=== PATIENT | male | born 1965 | race Caucasian/White ===

== ENCOUNTER → 2020-12-11 | Outpatient (CLI) | payer OTHER ==
[~2020-12-11] MED LIST: FENTANYL CITRATE/PF 100MCG/2 ML INJ ONE; MIDAZOLAM HCL 2 MG/2 ML VIAL ONE
[2020-12-11 08:32] LABS: HEMATOCRIT 36.2 % (38.2-49.6); HEMOGLOBIN 12.1 g/dL (14.0-18.0)
[2020-12-11 08:50] LABS: INR 1.06; PROTHROMBIN TIME 14.4 seconds (11.9-14.5)
[2020-12-11 08:51] LABS: PARTIAL THROMBOPLASTIN TIME 39.9 seconds (23.8-35.5)
== END ==
LOC: CT 08:11
PROVIDERS: ATTEND Urology
DX: D41.01 Neoplasm of uncertain behavior of right kidney (principal)
CPT/HCPCS: 36415; 47000; 50200; 74150; 76942; 77012; 85014; 85018; 85049; 85610; 85730; 88307; J2250; J3010; 74176; 99152; 99153

== ENCOUNTER 2021-03-12 10:05 | Inpatient (IN) | payer OTHER ==
[2021-03-10 09:24] LABS: BASOPHILS % 0.3 % (0.0-1.0); EOSINOPHILS # (AUTO) 0.3 (0.0-0.4); EOSINOPHILS % 5.3 % (0.0-6.0); HEMATOCRIT 45.5 % (38.2-49.6); HEMOGLOBIN 15.1 g/dL (14.0-18.0); LYMPHOCYTES # (AUTO) 1.4 (1.0-3.2); MEAN CORPUSCULAR HGB CONC 33.2 g/dL (31-35); MEAN CORPUSCULAR VOLUME 90.3 fL (81-99); MONOCYTES # (AUTO) 0.4 (0.2-0.8); MONOCYTES % 6.1 % (4.4-11.3); NEUTROPHILS # (AUTO) 4.1 (2.1-6.9); NEUTROPHILS % 65.7 % (38.7-80.0); PLATELET COUNT 271 x10e3/uL (140-360); RED BLOOD COUNT 5.04 x10e6/uL (4.3-5.7); RED CELL DISTRIBUTION WIDTH 15.9 % (11.7-14.4)
[2021-03-10 09:46] LABS: ALBUMIN 3.9 g/dL (3.5-5.0); ALBUMIN/GLOBULIN RATIO 1.3 (0.8-2.0); ANION GAP 14.1 mmol/L (8-16); CALCIUM 9.2 mg/dL (8.4-10.2); CREATININE, SERUM 0.79 mg/dL (0.72-1.25); POTASSIUM 4.1 mmol/L (3.5-5.1)
[~2021-03-12 10:05] MED LIST changes: +AMLODIPINE BESYL5 MG PO; -FENTANYL CITRATE/PF 100MCG/2 ML INJ ONE; +LISINOPRIL10 MG PO; -MIDAZOLAM HCL 2 MG/2 ML VIAL ONE; +NEXAVAR200 MG PO; +NEXIUM40 MG PO; +TYLENOL325 MG PO
[2021-03-12] MEDS ORDERED: SODIUM CHLORIDE 0.9% 50ML 50 ML ONE (10:30)
[2021-03-12] MEDS ORDERED: FENTANYL CITRATE/PF 100MCG/2 ML INJ ONE ×2 (12:28→15:14)
[2021-03-12] MEDS ORDERED: SODIUM CHLORIDE 0.9% 100 ML ONE (12:42)
[2021-03-12] MEDS ORDERED: ROCURONIUM BROMIDE 10 MG/ML 5ML VIAL IV ONE (12:47)
[2021-03-12] MEDS ORDERED: PROPOFOL IV EMULSION 10 MG/ML 20 ML VIAL ONE (12:47)
[2021-03-12] MEDS ORDERED: ONDANSETRON HCL INJ 2MG/ML 2ML 2 MG/ML VIAL ONE (12:47)
[2021-03-12] MEDS ORDERED: POVIDONE IODINE 0.05% 0.05 % ML PO ONE (12:47)
[2021-03-12] MEDS ORDERED: DEXAMETHASONE SOD PHOS INJ 4 MG/ML SDV ONE (12:47)
[2021-03-12] MEDS ORDERED: SEVOFLURANE INHAL SOLN 250 ML PEN BTL ONE (12:47)
[2021-03-12] MEDS ORDERED: LIDOCAINE HCL 2% LOCAL INJ 5 ML SDV VIAL INJ ONE (12:47)
[2021-03-12] MEDS ORDERED: ACETAMINOPHEN 1000 MG/100 ML 100 ML IV ONE (13:29)
[2021-03-12] MEDS ORDERED: MANNITOL 25% 12.5GM/50ML 0 ML ONE (13:30)
[2021-03-12] MEDS ORDERED: NALOXONE HCL INJ 0.4 MG/ML AMP IV PRN (14:30)
[2021-03-12] MEDS ORDERED: ACETAMINOPHEN 1000 MG/100 ML IV PRN (14:30)
[2021-03-12] MEDS ORDERED: MORPHINE SULFATE 1 MG/ML 30ML PCA IV PRN (14:30)
[2021-03-12] MEDS ORDERED: DIPHENHYDRAMINE HCL INJ 50 MG/ML VIAL IM PRN (14:30)
[2021-03-12] MEDS ORDERED: ONDANSETRON HCL INJ 2MG/ML 2ML 2 MG/ML VIAL IV PRN (14:30)
[2021-03-12 15:00] LABS: BASOPHILS % 0.3 % (0.0-1.0); EOSINOPHILS # (AUTO) 0.1 (0.0-0.4); EOSINOPHILS % 0.7 % (0.0-6.0); HEMATOCRIT 44.3 % (38.2-49.6); HEMOGLOBIN 14.4 g/dL (14.0-18.0); LYMPHOCYTES # (AUTO) 1.2 (1.0-3.2); LYMPHOCYTES % 8.6 % (18.0-39.1); MEAN CORPUSCULAR HEMOGLOBIN 29.8 pg (28-32); MEAN CORPUSCULAR HGB CONC 32.5 g/dL (31-35); MEAN CORPUSCULAR VOLUME 91.7 fL (81-99); MONOCYTES # (AUTO) 0.3 (0.2-0.8); MONOCYTES % 2.2 % (4.4-11.3); NEUTROPHILS # (AUTO) 11.8 (2.1-6.9); NEUTROPHILS % 87.8 % (38.7-80.0); PLATELET COUNT 280 x10e3/uL (140-360); RED BLOOD COUNT 4.83 x10e6/uL (4.3-5.7); RED CELL DISTRIBUTION WIDTH 15.9 % (11.7-14.4)
[2021-03-12 15:15] LABS: CALCIUM 8.3 mg/dL (8.4-10.2); CREATININE, SERUM 0.87 mg/dL (0.72-1.25)
[2021-03-12 16:43] VITALS: BP 124/92
[2021-03-12] MEDS: SODIUM CHLORIDE 0.9% 250ML IRRIG IR SCH ×2 (17:01→21:51)
[2021-03-12] MEDS: D5.45%NS/KCL 20MEQ 1,000 ML IV SCH (17:14)
[2021-03-12 19:43] VITALS: BP_SYST 132; BP_SYST 140; BP_DIAS 73
[2021-03-12 19:44] VITALS: BP 132/87
[2021-03-12] MEDS: Cefazolin 1 GM in SODIUM CHLORIDE 0.9% 50ML 50 ML IV SCH (20:33)
[2021-03-13] VITALS (8 sets, daily range): BP systolic 106–131; BP diastolic 78–86
[2021-03-13] MEDS: D5.45%NS/KCL 20MEQ 1,000 ML IV SCH ×2 (01:23→08:05)
[2021-03-13] MEDS: SODIUM CHLORIDE 0.9% 250ML IRRIG IR SCH ×6 (01:44→21:33)
[2021-03-13] MEDS: Cefazolin 1 GM in SODIUM CHLORIDE 0.9% 50ML 50 ML IV SCH ×3 (03:45→20:00)
[2021-03-13 06:08] LABS: BASOPHILS % 0.1 % (0.0-1.0); HEMATOCRIT 43.7 % (38.2-49.6); HEMOGLOBIN 14.5 g/dL (14.0-18.0); LYMPHOCYTES # (AUTO) 1.3 (1.0-3.2); LYMPHOCYTES % 12.3 % (18.0-39.1); MEAN CORPUSCULAR HEMOGLOBIN 29.8 pg (28-32); MEAN CORPUSCULAR HGB CONC 33.2 g/dL (31-35); MEAN CORPUSCULAR VOLUME 89.9 fL (81-99); MONOCYTES # (AUTO) 0.9 (0.2-0.8); MONOCYTES % 8.5 % (4.4-11.3); NEUTROPHILS # (AUTO) 8.2 (2.1-6.9); NEUTROPHILS % 78.6 % (38.7-80.0); PLATELET COUNT 258 x10e3/uL (140-360); RED BLOOD COUNT 4.86 x10e6/uL (4.3-5.7); RED CELL DISTRIBUTION WIDTH 15.8 % (11.7-14.4)
[2021-03-13 06:26] LABS: ANION GAP 11.2 mmol/L (8-16); CALCIUM 8.1 mg/dL (8.4-10.2); POTASSIUM 4.2 mmol/L (3.5-5.1)
[2021-03-13] MEDS: MORPHINE SULFATE 1 MG/ML 30ML PCA IV PRN (10:00)
[2021-03-13] MEDS ORDERED: ACETAMINOPHEN 1000 MG/100 ML IV PRN (11:00)
[2021-03-13] MEDS ORDERED: MAGNESIUM SULFATE 2GM/50ML IV ONE (11:00)
[2021-03-13] MEDS ORDERED: MAGNESIUM SULFATE 2GM/50ML 50 ML IV ONE (11:30)
[2021-03-13] MEDS: DEXTROSE 5%/0.45% SOD CHL 1,000 ML IV SCH ×2 (11:33→20:56)
[2021-03-14] VITALS (8 sets, daily range): BP systolic 122–139; BP diastolic 74–84
[2021-03-14] MEDS: SODIUM CHLORIDE 0.9% 250ML IRRIG IR SCH ×3 (02:00→09:08)
[2021-03-14] MEDS: MORPHINE SULFATE 1 MG/ML 30ML PCA IV PRN (03:15)
[2021-03-14] MEDS: Cefazolin 1 GM in SODIUM CHLORIDE 0.9% 50ML 50 ML IV SCH ×3 (03:16→20:00)
[2021-03-14] MEDS: DEXTROSE 5%/0.45% SOD CHL 1,000 ML IV SCH (05:54)
[2021-03-14 06:25] LABS: BASOPHILS % 0.3 % (0.0-1.0); EOSINOPHILS # (AUTO) 0.1 (0.0-0.4); HEMATOCRIT 43.4 % (38.2-49.6); HEMOGLOBIN 14.1 g/dL (14.0-18.0); LYMPHOCYTES # (AUTO) 1.1 (1.0-3.2); LYMPHOCYTES % 10.4 % (18.0-39.1); MEAN CORPUSCULAR HEMOGLOBIN 30.1 pg (28-32); MEAN CORPUSCULAR HGB CONC 32.5 g/dL (31-35); MEAN CORPUSCULAR VOLUME 92.7 fL (81-99); MONOCYTES % 9.5 % (4.4-11.3); NEUTROPHILS # (AUTO) 7.9 (2.1-6.9); NEUTROPHILS % 78.3 % (38.7-80.0); PLATELET COUNT 191 x10e3/uL (140-360); RED BLOOD COUNT 4.68 x10e6/uL (4.3-5.7); RED CELL DISTRIBUTION WIDTH 15.7 % (11.7-14.4)
[2021-03-14 06:46] LABS: ANION GAP 12.9 mmol/L (8-16); CALCIUM 7.8 mg/dL (8.4-10.2); CREATININE, SERUM 0.98 mg/dL (0.72-1.25); POTASSIUM 3.9 mmol/L (3.5-5.1)
[2021-03-14 07:05] LABS: MAGNESIUM 2.1 MG/DL (1.3-2.1); PHOSPHORUS 1.9 MG/DL (2.3-4.7)
[2021-03-14] MEDS ORDERED: POTASSIUM PHOSPHATE 15 MM in SODIUM CHLORIDE 0.9% 250ML 250 ML IV ONE (08:15)
[2021-03-14] MEDS ORDERED: BISACODYL 10 MG SUPP PR ONE (12:00)
[2021-03-14] MEDS: DEXTROSE 5%/0.9% SOD CHL 1,000 ML IV SCH (16:45)
[2021-03-15] VITALS (8 sets, daily range): BP systolic 119–135; BP diastolic 76–87
[2021-03-15] MEDS: Cefazolin 1 GM in SODIUM CHLORIDE 0.9% 50ML 50 ML IV SCH ×3 (03:49→20:07)
[2021-03-15] MEDS: DEXTROSE 5%/0.9% SOD CHL 1,000 ML IV SCH (04:55)
[2021-03-15 05:28] LABS: BASOPHILS % 0.4 % (0.0-1.0); EOSINOPHILS # (AUTO) 0.2 (0.0-0.4); EOSINOPHILS % 2.7 % (0.0-6.0); HEMATOCRIT 40.9 % (38.2-49.6); HEMOGLOBIN 13.5 g/dL (14.0-18.0); LYMPHOCYTES # (AUTO) 0.9 (1.0-3.2); LYMPHOCYTES % 11.1 % (18.0-39.1); MEAN CORPUSCULAR HEMOGLOBIN 29.9 pg (28-32); MEAN CORPUSCULAR VOLUME 90.7 fL (81-99); MONOCYTES # (AUTO) 0.7 (0.2-0.8); MONOCYTES % 8.6 % (4.4-11.3); NEUTROPHILS # (AUTO) 6.5 (2.1-6.9); NEUTROPHILS % 76.7 % (38.7-80.0); PLATELET COUNT 177 x10e3/uL (140-360); RED BLOOD COUNT 4.51 x10e6/uL (4.3-5.7)
[2021-03-15 06:08] LABS: ANION GAP 11.8 mmol/L (8-16); CREATININE, SERUM 0.82 mg/dL (0.72-1.25); POTASSIUM 3.8 mmol/L (3.5-5.1)
[2021-03-15 06:09] LABS: MAGNESIUM 1.9 MG/DL (1.3-2.1); PHOSPHORUS 1.9 MG/DL (2.3-4.7)
[2021-03-15] MEDS: MORPHINE SULFATE 1 MG/ML 30ML PCA IV PRN (07:00)
[2021-03-15] MEDS ORDERED: MAGNESIUM HYDROXIDE 30 ML UDC PO PRN (09:00)
[2021-03-15] MEDS ORDERED: Morphine 4mg Syringe 4 MG/ML INJ IV PRN (09:00)
[2021-03-15] MEDS: LISINOPRIL 10 MG TAB PO SCH ×2 (09:57→18:04)
[2021-03-15] MEDS: SENNA-S TABLET PO SCH ×2 (09:57→18:04)
[2021-03-15] MEDS: PANTOPRAZOLE SOD 40 MG TABEC PO SCH (09:57)
[2021-03-15] MEDS: HYDROCODONE/APAP 7.5MG-325MG 1 EA TAB PO PRN ×3 (09:58→20:07)
[2021-03-15] MEDS ORDERED: AMLODIPINE BESYLATE 5 MG TAB PO SCH (21:00)
[2021-03-16] VITALS: BP 126/89
[2021-03-16] MEDS: HYDROCODONE/APAP 7.5MG-325MG 1 EA TAB PO PRN ×3 (02:34→11:03)
[2021-03-16 04:00] VITALS: BP 132/81
[2021-03-16] MEDS: Cefazolin 1 GM in SODIUM CHLORIDE 0.9% 50ML 50 ML IV SCH ×2 (04:15→11:01)
[2021-03-16 06:26] LABS: BASOPHILS % 0.3 % (0.0-1.0); EOSINOPHILS # (AUTO) 0.4 (0.0-0.4); EOSINOPHILS % 5.5 % (0.0-6.0); HEMATOCRIT 41.1 % (38.2-49.6); HEMOGLOBIN 13.7 g/dL (14.0-18.0); LYMPHOCYTES # (AUTO) 0.8 (1.0-3.2); LYMPHOCYTES % 10.2 % (18.0-39.1); MEAN CORPUSCULAR HEMOGLOBIN 29.8 pg (28-32); MEAN CORPUSCULAR HGB CONC 33.3 g/dL (31-35); MEAN CORPUSCULAR VOLUME 89.5 fL (81-99); MONOCYTES # (AUTO) 0.6 (0.2-0.8); MONOCYTES % 8.1 % (4.4-11.3); NEUTROPHILS # (AUTO) 5.6 (2.1-6.9); NEUTROPHILS % 75.5 % (38.7-80.0); PLATELET COUNT 213 x10e3/uL (140-360); RED BLOOD COUNT 4.59 x10e6/uL (4.3-5.7); RED CELL DISTRIBUTION WIDTH 14.8 % (11.7-14.4)
[2021-03-16 06:44] LABS: ANION GAP 15.8 mmol/L (8-16); CALCIUM 7.8 mg/dL (8.4-10.2); CREATININE, SERUM 0.76 mg/dL (0.72-1.25); POTASSIUM 3.8 mmol/L (3.5-5.1)
[2021-03-16 07:23] VITALS: BP 136/76
[2021-03-16] MEDS: LISINOPRIL 10 MG TAB PO SCH (08:45)
[2021-03-16] MEDS: PANTOPRAZOLE SOD 40 MG TABEC PO SCH (08:45)
[2021-03-16] MEDS: SENNA-S TABLET PO SCH (08:45)
[2021-03-16 09:45] VITALS: BP 136/76
[2021-03-16 11:06] VITALS: BP 144/89
== END 2021-03-16 12:38 | disposition home or self-care (01) | DRG 657 ==
LOC: OR 10:05 → PACU V 14:16 → MED/SURG 16:40
PROVIDERS: ADMIT Internal Medicine; ATTEND Internal Medicine
PROC: 0TT00ZZ Resection of Right Kidney, Open Approach (ICD-10-PCS; principal; 2021-03-12 12:06)
DX: C64.1 Malignant neoplasm of right kidney, except renal pelvis (principal); C79.9 Secondary malignant neoplasm of unspecified site; N35.919 Unspecified urethral stricture, male, unspecified site; Z20.822 Contact with and (suspected) exposure to COVID-19; E87.8 Other disorders of electrolyte and fluid balance, not elsewhere classified; G89.18 Other acute postprocedural pain; Z86.16 Personal history of COVID-19; I10 Essential (primary) hypertension; K21.9 Gastro-esophageal reflux disease without esophagitis; Z87.891 Personal history of nicotine dependence
CPT/HCPCS: 36415; 71045; 71046; 80048; 80053; 83735; 84100; 85025; 86850; 86900; 86920; 88307; 88342; 93005; C1758; J0690; J1100; J2001; J2150; J2270; J2405; J3010; J3475; J7042; J7050; U0002